=== PATIENT | male | born 1935 | race Caucasian/White ===

== ENCOUNTER → 2020-04-07 | Outpatient (CLI) | payer MEDICARE, BC ==
[2014-01-30 19:33] VITALS: BP 86/57
[~2020-04-07] MED LIST: CARDI-OMEGA1000 MG PO; LEVOTHYROXIN0.075 MG PO; METOPROLOL SUCC50 M1 PO; NIACIN500 M3 PO; SIMVASTATIN40 MG PO; ST. JOSEPH81 M2 PO
== END ==
LOC: RAD 10:57
DX: R20.9 Unspecified disturbances of skin sensation (principal)

== ENCOUNTER → 2023-02-06 | Outpatient (CLI) | payer MEDICARE, BC | LOC: RAD 13:18 | DX: M43.17 Spondylolisthesis, lumbosacral region (principal); M62.838 Other muscle spasm ==